=== PATIENT | male | born 1990 | race Caucasian/White ===

== ENCOUNTER 2017-07-30 11:34 | Inpatient (IN) | payer OTHER ==
[~2017-07-30] VITALS: Ht 162.5 cm; Wt 77.3 kg
[2017-07-30 12:00] VITALS: BP 138/92
[2017-07-30 13:08] VITALS: BP 138/92
[2017-07-30 14:50] LABS: BILIRUBIN NEGATIVE (NEGATIVE); BLOOD NEGATIVE (NEGATIVE); CLARITY CLEAR (CLEAR); COLOR YELLOW (YELLOW); GLUCOSE NEGATIVE (NEGATIVE); KETONE NEGATIVE (NEGATIVE); LEUKO ESTERASE NEGATIVE (NEGATIVE); NITRITE NEGATIVE (NEGATIVE); PH 5.5 (5.0-9.0); SPECIFIC GRAVITY >= 1.030 (1.005-1.030); UROBILINOGEN 0.2 E.U./dl (0.2-1.0)
[2017-07-30 14:58] LABS: URINE AMPHETAMINES < 1000 (1000ng/ml); URINE BARBITURATES < 200 (200ng/ml); URINE BENZODIAZEPINES < 200 (200ng/ml); URINE CANNABINOIDS (THC) < 50 (50ng/ml); URINE COCAINE < 300 (300ng/ml); URINE METHADONE < 300 (300ng/ml); URINE OPIATES < 300 (300ng/ml); URINE PHENCYCLIDINE < 25 (25ng/ml)
[2017-07-30 14:58] LABS: BASO % 0.3 % (0.0-1.0); EOS # 0.2 10*3/uL (0.0-0.4); EOS % 3.1 % (1.0-4.0); HEMATOCRIT 48.8 % (42.0-52.0); HEMOGLOBIN 16.4 g/dl (14.0-18.0); LYMPH % 25.8 % (27.0-41.0); MEAN CELL VOLUME 85.2 fl (80.0-94.0); MEAN CORPUSCULAR HGB 28.6 pg (27.0-31.0); MEAN CORPUSCULAR HGB CONC 33.6 g/dl (33.0-37.0); MEAN PLATELET VOLUME 10.1 fl (9.6-12.3); MONO # 0.6 10*3/uL (0.1-1.0); MONO % 7.7 % (3.0-9.0); NEUT # 4.9 10*3/uL (2.3-7.9); NEUT % 62.7 % (47.0-73.0); PLATELET COUNT AUTOMATED 260 10*3/uL (130-400); RED BLOOD COUNT 5.73 10*6/uL (4.50-5.90); RED CELL DISTRI WIDTH 12.1 % (0-14.5); WHITE BLOOD COUNT 7.8 10*3/uL (4.8-10.8)
[2017-07-30 15:01] LABS: BACTERIA 1+; EPITHELIAL CELLS 0-2; MUCOUS TRACE; WBC 0-2 wbc/hpf (0-5)
[2017-07-30 15:14] LABS: ALKALINE PHOSPHATASE 55 U/L (45-117); BUN 17 mg/dl (7-24); CHLORIDE 105 mmol/L (98-107); CREATININE 0.73 mg/dL (0.70-1.30); POTASSIUM 4.3 mmol/L (3.5-5.1); SGOT/AST 57 IU/L (3-35); SGPT/ALT 123 U/L (12-78); SODIUM 139 mmol/L (136-145); TOTAL PROTEIN 7.9 gm/dL (6.4-8.2)
[2017-07-30 15:15] LABS: ETHYL ALCOHOL < 3.0 mg/dl (<3)
[2017-07-30 16:00] VITALS: BP 131/81
[2017-07-30 20:00] VITALS: BP 133/81
[2017-07-31] VITALS: BP 119/66
[2017-07-31 08:00] VITALS: BP 108/69
[2017-07-31 11:54] VITALS: BP 125/76
[2017-07-31 16:00] VITALS: BP 143/72
[2017-07-31 20:00] VITALS: BP 129/77
[2017-08-01] VITALS: BP 128/60
[2017-08-01 06:16] LABS: HEPATITIS B SURFACE AG Negative (Negative)
[2017-08-01 08:00] VITALS: BP 126/73
[2017-08-01 08:00] LABS: HEPATITIS C VIRUS ANTIBODY >11.0 s/co (0.0-0.9)
[2017-08-01 16:00] VITALS: BP 124/89
[2017-08-01 20:00] VITALS: BP 137/86
[2017-08-02] VITALS: BP 147/84
[2017-08-02 08:00] VITALS: BP 117/73
[2017-08-02] MEDS ORDERED: METHOCARBAMOL750 M1 PO (08:53)
[2017-08-02] MEDS ORDERED: ATARAX,VISTARIL50 MG PO (08:53)
[2017-08-02] MEDS ORDERED: MOTRIN 600 MG E4 TAB PO (08:53)
[2017-08-02] MEDS ORDERED: ZOFRAN 4 MG ED2 TAB PO (08:53)
[2017-08-02] MEDS ORDERED: TRAZODONE50 MG PO (13:37)
[2017-08-02] MEDS ORDERED: ROPINIROLE HYD0.5 MG PO (13:37)
== END 2017-08-02 14:27 | disposition home or self-care (01) | DRG 897 ==
LOC: 4E 11:34
PROVIDERS: Internal Medicine
DX: F11.23 Opioid dependence with withdrawal (principal); D72.810 Lymphocytopenia; E80.6 Other disorders of bilirubin metabolism; R74.0 Nonspecific elevation of levels of transaminase and lactic acid dehydrogenase [LDH]; F14.10 Cocaine abuse, uncomplicated; F12.10 Cannabis abuse, uncomplicated; F19.10 Other psychoactive substance abuse, uncomplicated; F17.210 Nicotine dependence, cigarettes, uncomplicated; Z71.6 Tobacco abuse counseling; Z83.3 Family history of diabetes mellitus

== ENCOUNTER 2019-03-10 14:36 | Inpatient (IN) | payer OTHER ==
[~2019-03-10] VITALS: Ht 172.7 cm; Wt 67.3 kg
[~2019-03-10 14:36] MED LIST: ATARAX,VISTARIL50 MG PO; METHOCARBAMOL750 M1 PO; MOTRIN 600 MG E4 TAB PO; ROPINIROLE HYD0.5 MG PO; TRAZODONE50 MG PO; ZOFRAN 4 MG ED2 TAB PO
[2019-03-10 15:50] VITALS: BP 133/86
--- NOTE | 2019-03-10 15:50 | NUR ---
A 29, admitted to , under the services of RENNY Manriquez DO with a diagnosis of OPIATE WITHDRAWL. Chief complaint is SUBSTANCE ABUSE. Patient arrived via ambulatory from CT. Monitor applied. Initial assessment completed. Vital signs taken and recorded. RENNY MANRIQUEZ DO notified of admission to the unit. Orders received. See assessment for past medical history, medications and allergies. Patient and/or family oriented to unit. [address] visitation policy reviewed. Clothing/patient valuable form completed. ALEXI JANG
--- NOTE | 2019-03-10 16:04 | NUR ---
PATIENT MEETS [facility]. CINA=[id number]. PATIENT IS GOING TO FOLLOW UP WITH THE [facility] IN [place] FOR MEDICATION-ASSISTED TREATMENT. SHAUN NGUYEN B.A. DELIVERY MAN
[2019-03-10 16:34] LABS: BASO % 0.4 % (0.0-1.0); EOS # 0.2 10*3/uL (0.0-0.4); HEMATOCRIT 47.4 % (42.0-52.0); HEMOGLOBIN 15.2 g/dl (14.0-18.0); LYMPH # 1.9 10*3/uL (1.3-4.4); LYMPH % 25.7 % (27.0-41.0); MEAN CELL VOLUME 87.9 fl (80.0-94.0); MEAN CORPUSCULAR HGB 28.2 pg (27.0-31.0); MEAN CORPUSCULAR HGB CONC 32.1 g/dl (33.0-37.0); MEAN PLATELET VOLUME 9.5 fl (9.6-12.3); MONO # 0.7 10*3/uL (0.1-1.0); MONO % 9.2 % (3.0-9.0); NEUT # 4.4 10*3/uL (2.3-7.9); NEUT % 61.1 % (47.0-73.0); PLATELET COUNT AUTOMATED 293 10*3/uL (130-400); RED BLOOD COUNT 5.39 10*6/uL (4.50-5.90); RED CELL DISTRI WIDTH 12.6 % (0-14.5); WHITE BLOOD COUNT 7.3 10*3/uL (4.8-10.8)
[2019-03-10 16:48] LABS: ALBUMIN 3.6 gm/dl (3.1-4.5); ALKALINE PHOSPHATASE 61 U/L (45-117); BUN 12 mg/dl (7-24); CHLORIDE 105 mmol/L (98-107); CREATININE 0.78 mg/dL (0.70-1.30); POTASSIUM 4.9 mmol/L (3.5-5.1); SGOT/AST 38 IU/L (3-35); SGPT/ALT 76 U/L (12-78); SODIUM 138 mmol/L (136-145); TOTAL PROTEIN 7.8 gm/dL (6.4-8.2)
[2019-03-10 16:50] LABS: INTERNATIONAL NORM RATIO 0.9 (2.0-3.5)
[2019-03-10 16:54] LABS: ETHYL ALCOHOL < 3.0 mg/dl (<3)
[2019-03-10 17:28] LABS: BILIRUBIN NEGATIVE (NEGATIVE); BLOOD NEGATIVE (NEGATIVE); CLARITY CLEAR (CLEAR); COLOR YELLOW (YELLOW); GLUCOSE NEGATIVE (NEGATIVE); KETONE NEGATIVE (NEGATIVE); LEUKO ESTERASE NEGATIVE (NEGATIVE); NITRITE NEGATIVE (NEGATIVE); PH 7.5 (5.0-9.0); UROBILINOGEN 0.2 E.U./dl (0.2-1.0)
[2019-03-10 17:34] LABS: BACTERIA TRACE; EPITHELIAL CELLS 0-2
--- NOTE | 2019-03-10 17:43 | NUR ---
MEDICATED WITH PO VISTARIL, BENTYL, ZOFRAN AND NICOTROL INHALER ORDERED PER PT REQUEST FOR C/O ANXIETY, STOMACH CRAMPS, NAUSEA AND THE CRAVING TO SMOKING.
[2019-03-10 19:15] LABS: URINE AMPHETAMINES < 1000 (1000ng/ml); URINE BARBITURATES < 200 (200ng/ml); URINE BENZODIAZEPINES < 200 (200ng/ml); URINE CANNABINOIDS (THC) < 50 (50ng/ml); URINE COCAINE > 300 (300ng/ml); URINE METHADONE < 300 (300ng/ml); URINE OPIATES < 300 (300ng/ml)
[2019-03-10 19:17] LABS: URINE PHENCYCLIDINE < 25 (25ng/ml)
[2019-03-10 20:00] VITALS: BP 117/65
[2019-03-11] VITALS: BP 120/68
--- NOTE | 2019-03-11 00:48 | NUR ---
PT MEDICATED WITH SCHEDULED SUBUTEX PER ORDER. PO ROBAXIN, PO BENTYL, AND PO TRAZODONE ALSO ADMINISTERED AT THIS TIME FOR PT C/O MUSCLE ACHES, STOMACH CRAMPING, AND SLEEPLESSNESS. WILL MONITOR EFFECTIVENESS. CALL LIGHT LEFT IN REACH.
--- NOTE | 2019-03-11 01:27 | NUR ---
EARLIER MEDICATIONS APPEAR EFFECTIVE. PT ASLEEP IN BED. RESPIRATIONS EASY. NO S/S OF DISTRESS NOTED. WILL MONITOR. CALL LIGHT IN REACH.
[2019-03-11 07:55] VITALS: BP 115/70
--- NOTE | 2019-03-11 07:55 | NUR ---
PT RESTING IN BED, ANTICIPATING BREAKFAST. NO S/S OF DISTRESS AT THIS TIME. WILL MONITOR. CALL LIGHT IN REACH. KAMALA MAHMOOD SPSANAMCC
--- NOTE | 2019-03-11 08:10 | NUR ---
PATIENT MEDICATED WITH PO BENTYL PER ORDER FOR COMPLAINTS OF STOMACH CRAMPING. WILL MONITOR FOR EFFECTIVENESS.
--- NOTE | 2019-03-11 09:42 | NUR ---
PER PATIENT, PRN MEDICATION WAS EFFECTIVE.
--- NOTE | 2019-03-11 09:52 | NUR ---
ASSESSMENT COMPLETED AND DOCUMENTED. PT HAS NO C/O PAIN AT THIS TIME. SITTING UP IN BED EATING & WATCHING TV. KAMALA MAHMOOD SPNRCC
[2019-03-11 11:57] VITALS: BP 132/80
--- NOTE | 2019-03-11 12:17 | NUR ---
ASSESSMENT COMPLETED AND DOCUMENTED. NO C/O PAIN AT THIS TIME. PT RESTING IN BED. WILL CONTINUE TO MONITOR, CALL LIGHT IN REACH. KAMALA MAYO
--- NOTE | 2019-03-11 13:35 | NUR ---
PT RESTING IN ROOM. NO COMPLAINTS OF PAIN AT TIME OF ASSESSMENT. REPORT GIVEN TO SHEILA NICOLE. KAMALA MAHMOOD SPSANAMCC
--- NOTE | 2019-03-11 15:31 | NUR ---
PATIENT IS STILL WANTING TO FOLLOW UP WITH THE [facility] IN [place] FOR SUBOXONE TREATMENT. SHAUN NGUYEN B.A. S[employer]OL [employer] MEDIA PROGRAM DIRECTOR
--- NOTE | 2019-03-11 15:40 | NUR ---
PT MEDICATED WITH REQUIP, VISTARIL, AND BENTYL FOR C/O RESTLESS LEGS, ANXIETTY, AND STOMACH CRAMPS. WILL MONITOR.
[2019-03-11 16:00] VITALS: BP 125/78
[2019-03-11 20:00] VITALS: BP 127/82
--- NOTE | 2019-03-11 20:00 | NUR ---
IN TO ASSESS PATIENT. NO COMPLAINTS AT THIS TIME. BREATHING IS EASY AND REGULAR ON ROOM AIR. DIMINISHED LUNGS T/O. NORMOACTIVE. NO EDEMA NOTED. CALL LIGHT WITHIN REACH, ENCOURAGED PATIENT TO ASK FOR PRN MEDICATIONS FOR WITHDRAWAL SYMPTOMS IF NEEDED
--- NOTE | 2019-03-11 21:53 | NUR ---
PATIENT SLEEPING. NO DISTRESS NOTED. CALL LIGHT WITHIN REACH, WILL MONITOR
--- NOTE | 2019-03-11 23:23 | NUR ---
PATIENT SUBUTEX GIVEN AT THIS TIME. NO COMPLAINTS. NO PRN'S NEEDED PER PT. CALL LIGHT WITHIN REACH, WILL MONITOR
[2019-03-12] VITALS: BP 128/84
--- NOTE | 2019-03-12 01:36 | NUR ---
PATIENT SLEEPING. NO DISTRESS NOTED. WILL MONITOR
--- NOTE | 2019-03-12 03:57 | NUR ---
PATIENT SLEEPING. BREATHING IS EASY AND REGULAR ON ROOM AIR. CALL LIGHT WITHIN REACH, WILL CONTINUE TO MONITOR
--- NOTE | 2019-03-12 05:20 | NUR ---
24 HR chart check completed.
--- NOTE | 2019-03-12 07:23 | NUR ---
PT MEDICATED WITH BENTYL AND VISTARIL FOR ABD CRAMPS AND ANXIETY. WILL MONITOR FOR RELIEF. VOICES NO OTHER CONCERNS AT THIS TIME. RESTING IN BED. CALL LIGHT WITHIN REACH.
[2019-03-12 08:00] VITALS: BP 122/77
--- NOTE | 2019-03-12 08:20 | NUR ---
Shift chart check completed.
--- NOTE | 2019-03-12 08:28 | NUR ---
PRN MEDICATIONS EFFECTIVE.
--- NOTE | 2019-03-12 14:05 | NUR ---
PT SLEEPING. NO S/S OF DISTRESS NOTED. RESPS EASY AND NON LABORED. CALL LIGHT WITHIN REACH.
[2019-03-12 16:00] VITALS: BP 143/89
--- NOTE | 2019-03-12 16:09 | NUR ---
PATIENT'S AFTERCARE REMAINS THE SAME. PATIENT WILL BE FOLLOWING UP WITH [facility] FOR HIS AFTERCARE PLAN. PATIENT AGREES AND UNDERSTAND HIS AFTERCARE PLAN. SHAUN NGUYEN B.A. SEWING INSPECTOR
--- NOTE | 2019-03-12 16:55 | NUR ---
PT RESTING IN BED. VOICES NO CONCERNS AT THIS TIME. NO S/S OF DISTRESS NOTED. CALL LIGHT WITHIN REACH.
--- NOTE | 2019-03-12 21:06 | NUR ---
PRN REQUIP, ROBAXIN, TRAZADONE, AND VISTARIL GIVEN FOR PT COMPLAINTS OF ANXIETY, SLEEPLESSNESS, RESTLESS LEGS AND MUSCLE ACHES. CALL LIGHT WITHIN [facility], WILL MONITOR
[2019-03-13] VITALS: BP 131/86
[2019-03-13 07:39] VITALS: BP 122/60
--- NOTE | 2019-03-13 08:16 | NUR ---
ASSESSMENT COMPLETED AND DOCUMENTED. VITALS IN RANGE, DENIES ANY PAIN OR DISCOMFORT AT THIS TIME. PT RELAXING IN BED. KAMALA MAHMOOD SPNRCC
--- NOTE | 2019-03-13 08:54 | NUR ---
Shift chart check completed.
--- NOTE | 2019-03-13 10:14 | NUR ---
ASSESSMENT COMPLETED AND DOCUMENTED. PT PLEASANT, ORIENTED, AND FOLLOWS COMMANDS. SITTING UP IN BED WAITING ON BREAKFAST. NO COMPLAINTS AT TIME OF ASSESSMENT. KAMALA MAYO
--- NOTE | 2019-03-13 10:38 | NUR ---
The Discharge Plan/Instructions have been completed.
--- NOTE | 2019-03-13 10:38 | NUR ---
Discharge instructions reviewed with patient/family. Patient receptive and verbalizes understanding. Follow-up care arranged. Written instructions given to patient/family. HARI GOMEZ
--- NOTE | 2019-03-13 10:50 | NUR ---
Discharge instructions reviewed with patient/family. Patient receptive and verbalizes understanding. Follow-up care arranged. Written instructions given to patient/family. HARI GOMEZ
--- NOTE | 2019-03-13 10:51 | NUR ---
The Discharge Plan/Instructions have been completed.
--- NOTE | 2019-03-13 12:02 | NUR ---
AR STAFF SET UP TRANSPORATION WITH [facility] FOR A RIDE HOME. [facility] WILL CONTACT THE FLOOR WITH UPDATE ON RIDE. SHAUN NGUYEN B.A. VISUAL JOURNALIST
== END 2019-03-13 10:50 | disposition home or self-care (01) | DRG 773 ==
LOC: 4E 14:36
PROVIDERS: Family Medicine; Internal Medicine; ADMIT Internal Medicine
DX: F11.23 Opioid dependence with withdrawal (principal); F17.210 Nicotine dependence, cigarettes, uncomplicated; B18.2 Chronic viral hepatitis C; R00.0 Tachycardia, unspecified; F14.10 Cocaine abuse, uncomplicated; F19.10 Other psychoactive substance abuse, uncomplicated; Z86.19 Personal history of other infectious and parasitic diseases; Z82.49 Family history of ischemic heart disease and other diseases of the circulatory system; Z83.3 Family history of diabetes mellitus; Z71.6 Tobacco abuse counseling

== ENCOUNTER 2021-10-26 10:20 | Emergency (ER) | payer OTHER ==
[~2021-10-26] VITALS: Wt 68.0 kg
== END 2021-10-26 10:35 | disposition left against medical advice (07) ==
LOC: ED 10:20
DX: Z53.21 Procedure and treatment not carried out due to patient leaving prior to being seen by health care provider (principal)